=== PATIENT | female | born 1970 | race Caucasian/White ===

== ENCOUNTER 2016-03-23 04:48 | Emergency (ER) | payer OTHER ==
[2016-03-23 05:09] VITALS: BP 138/86; PULSE 76; TEMP 98.1; BMI 23.9
--- NOTE | 2016-03-23 05:27 | PDOC ---
History of Present Illness - General Chief Complaint: Pain, Acute Stated Complaint: PAIN,RIGHT SIDE Time Seen by Provider: 03/23/16 04:59 History Source: Patient Exam Limitations: No Limitations - History of Present Illness Timing/Duration: other (x2d) Associated Symptoms: reports: malaise. denies: chest pain, cough, fever/chills , headaches, nausea/vomiting, shortness of breath Past History - Travel Traveled outside of the country in the last 30 days: No Close contact w/someone who was outside of country & ill: No - Past Medical History Allergies/Adverse Reactions: Allergies Allergy/AdvReac Type Severity Reaction Status Date / Time No Known Allergies Allergy Verified 03/23/16 04:57 Home Medications: Ambulatory Orders Diphenhydramine HCl [Benadryl -] 25 mg PO Q6H 03/23/16 - Psycho/Social/Smoking Cessation Hx Anxiety: No Suicidal Ideation: No Smoking History: Never smoked Hx Alcohol Use: No Substance Use Type: None Review of Systems - Review of Systems Able to Perform ROS?: Yes Comments:: 03/23/16 05:56 CONSTITUTIONAL: +chills, generalize malaise Absent: fever, diaphoresis, malaise, loss of appetite HEENT: Absent: rhinorrhea, nasal congestion, throat pain, throat swelling, difficulty swallowing, mouth swelling, ear pain, eye pain, visual Changes CARDIOVASCULAR: Absent: chest pain, loss of consciousness, palpitations, irregular heart rate, peripheral edema RESPIRATORY: Absent: cough, shortness of breath, dyspnea with exertion, orthopnea, wheezing, stridor, hemoptysis GASTROINTESTINAL: Absent: abdominal pain, abdominal distension, nausea, vomiting, diarrhea, constipation, melena, hematochezia GENITOURINARY: Absent: dysuria, frequency, urgency, hesitancy, hematuria, flank pain, genital pain MUSCULOSKELETAL: Absent: myalgia, arthralgia, joint swelling SKIN: Absent: rash, itching, pallor HEMATOLOGIC/IMMUNOLOGIC: Absent: easy bleeding, easy bruising, lymphadenopathy, frequent infections ENDOCRINE: Absent: unexplained weight gain, unexplained weight loss, heat intolerance, cold intolerance NEUROLOGIC: Absent: headache, focal weakness or paresthesias, dizziness, unsteady gait, seizure, mental status changes, bladder or bowel incontinence PSYCHIATRIC: Absent: anxiety, depression, suicidal or homicidal ideation, hallucinations. Is the patient limited Polish proficient: No *Physical Exam - Vital Signs Last Vital Signs Temp Pulse Resp BP Pulse Ox 98.1 F 76 18 138/86 100 03/23/16 04:58 03/23/16 04:58 03/23/16 04:58 03/23/16 04:58 03/23/16 04:58 - Physical Exam Comments: 03/23/16 05:57 GENERAL: Well developed, well nourished. Awake and alert. No acute distress. HEENT: Normocephalic, atraumatic. PERRLA, EOMI. No conjunctival pallor. Sclera are non- icteric. Moist mucous membranes. Oropharynx is clear. NECK: Supple. Full ROM. No JVD. Carotid pulses 2+ and symmetric, without bruits. No thyromegaly. No lymphadenopathy. CARDIOVASCULAR: Regular rate and rhythm. No murmurs, rubs, or gallops. Distal pulses are 2+ and symmetric. PULMONARY: No evidence of respiratory distress. Lungs clear to auscultation bilaterally. No wheezing, rales or rhonchi. ABDOMINAL: Soft. Non-tender. Non-distended. No rebound or guarding. No organomegaly. Normoactive bowel sounds. MUSCULOSKELETAL Normal range of motion at all joints. No bony deformities or tenderness. No CVA tenderness. EXTREMITIES: No cyanosis. No clubbing. No edema. No calf tenderness. SKIN: Warm and dry. Normal capillary refill. No rashes. No jaundice. NEUROLOGICAL: Alert, awake, appropriate. Cranial nerves 2-12 intact. No deficits to light touch and temperature in face, upper extremities and lower extremities. No motor deficits in the in face, upper extremities and lower extremities. Normoreflexic in the upper and lower extremities. Normal speech. Toes are down- going bilaterally. Gait is normal without ataxia. PSYCHIATRIC: Cooperative. Good eye contact. Appropriate mood and affect. neg pronator drift/rhomberg Toe/heel/tandem walk intact ED Treatment Course - LABORATORY CBC & Chemistry Diagram: 03/23/16 05:25 03/23/16 05:25 *DC/Admit/Observation/Transfer Diagnosis at time of Disposition: Viral infection - Discharge Dispostion Disposition: HOME Condition at time of disposition: Stable - Patient Instructions Printed Discharge Instructions: DI for Viral Syndrome Additional Instructions: Rest Increase fluids Take Tylenol, alternating with Motrin as needed for pain Follow-up with your primary care physician as scheduled for tomorrow Return back to the emergency department for severe/persistent or worsening symptoms. Progress Note - Progress Note Progress Note: 45-year-old female presents to the emergency department with her son who says his mother is complaining of generalized weakness after sleeping for 6 hours on a right lat position. Patient's daughter was recently diagnosed with influenza. Patient denies any headache, dizziness, lightheadedness, visual disturbance, difficulty swallowing, nasal congestion, sinus pain, chest pain, shortness of breath, neck pains, back pains, abdominal pains, flank pains, urinary symptoms: Frequency/urgency/hesitancy, hematuria, extremity numbness or tingling sensation. Patient says she feels fine after taken Tylenol. There are no exacerbating factors. Patient is drinking fluids and eating well.
[2016-03-23] MEDS ORDERED: SODIUM CHLORIDE 1,000 ML IV STA (05:28)
[2016-03-23] MEDS ORDERED: KETOROLAC TROMETHAMINE 30 MG/1 ML VIAL IVPUSH ONE (05:29)
[2016-03-23] MEDS ORDERED: KETOROLAC TROMETHAMINE 30 MG/1 ML VIAL ONE (05:30)
[2016-03-23 05:49] LABS: BASOPHIL 0.6 % (0-2.0); MCH 29.4 pg (25.7-33.7); MCHC 33.6 g/dl (32.0-36.0); MEAN CELL VOLUME 87.5 fl (80-96); MEAN PLT VOLUME 9.2 fl (7.5-11.1); NEUTROPHILS 56.1 % (42.8-82.8); PLATELET COUNT 274 K/MM3 (134-434); RDW 12.7 % (11.6-15.6); WHITE BLOOD COUNT 6.2 K/mm3 (4.0-10.0)
[2016-03-23 05:50] LABS: URINE APPEARANCE CLEAR; URINE BILIRUBIN NEGATIVE (NEGATIVE); URINE BLOOD NEGATIVE (NEGATIVE); URINE COLOR STRAW; URINE GLUCOSE (UA) NEGATIVE (NEGATIVE); URINE KETONE NEGATIVE (NEGATIVE); URINE LEUK ESTERASE NEGATIVE (NEGATIVE); URINE NITRITE NEGATIVE (NEGATIVE); URINE PROTEIN NEGATIVE (NEGATIVE); URINE UROBILINOGEN NEGATIVE E.U./dl (0.2-1.0)
[2016-03-23 06:11] LABS: ALK PHOS 67 U/L (45-117); ANION GAP 9 (8-16); BILIRUBIN,TOTAL 0.5 mg/dL (0.2-1.0); CALCIUM 8.8 mg/dL (8.5-10.1); CO2 28 mmol/L (21-32); CREATININE 0.8 mg/dL (0.55-1.02); GLUCOSE,RANDOM 89 mg/dL (74-106); SGPT/ALT 33 U/L (12-78); TOT PROT 7.7 g/dl (6.4-8.2)
[2016-03-23 06:21] LABS: SGOT/AST 17 U/L (15-37)
== END 2016-03-23 06:31 | disposition home or self-care (01) ==
LOC: JER 04:48
PROC: 3E0333Z Introduction of Anti-inflammatory into Peripheral Vein, Percutaneous Approach (ICD-10-PCS; principal; 2016-03-23)
PROC: 3E0337Z Introduction of Electrolytic and Water Balance Substance into Peripheral Vein, Percutaneous Approach (ICD-10-PCS; 2016-03-23)
DX: B34.9 Viral infection, unspecified (principal)
CPT/HCPCS: 36415; 80053; 81003; 84703; 85025; 96361; 96374; 99281-25

== ENCOUNTER 2016-10-27 21:47 | Emergency (ER) | payer OTHER ==
[2016-10-27 22:02] VITALS: BP 136/78; PULSE 75; TEMP 98; BMI 25.8
--- NOTE | 2016-10-27 22:17 | PDOC ---
History of Present Illness - General Chief Complaint: Respiratory Stated Complaint: CHEST PAIN Time Seen by Provider: 10/27/16 22:16 - History of Present Illness Initial Comments: 10/27/16 22:17 Ms. Rivera is a 46 year old female with no significant past medical history of who presents to the emergency department with a one day history of cough, low energy, and pain to her chest when pressed. She had initially seen her doctor this morning for these same symptoms and was diagnosed with an ear and throat infection but did not fill her prescription. She presented to the ER as her symptoms had gotten worse since this AM. Past History - Past Medical History Allergies/Adverse Reactions: Allergies Allergy/AdvReac Type Severity Reaction Status Date / Time No Known Allergies Allergy Verified 10/27/16 22:02 Home Medications: Ambulatory Orders Diphenhydramine HCl [Benadryl -] 25 mg PO Q6H 03/23/16 Other medical history: denies - Psycho/Social/Smoking Cessation Hx Anxiety: No Suicidal Ideation: No Smoking History: Never smoked Hx Alcohol Use: No Substance Use Type: None Review of Systems - Review of Systems Comments:: 10/27/16 22:17 GENERAL/CONSTITUTIONAL: No fever or chills. No weakness. HEAD, EYES, EARS, NOSE AND THROAT: +Sore throat. No change in vision. No ear pain or discharge. CARDIOVASCULAR: +Sternal pain reported RESPIRATORY: No cough, wheezing, or hemoptysis. GASTROINTESTINAL: No nausea, vomiting, diarrhea or constipation. GENITOURINARY: No dysuria, frequency, or change in urination. MUSCULOSKELETAL: No joint or muscle swelling or pain. No neck or back pain. SKIN: No rash NEUROLOGIC: No headache, vertigo, loss of consciousness, or change in strength/ sensation. ENDOCRINE: No increased thirst. No abnormal weight change HEMATOLOGIC/LYMPHATIC: No anemia, easy bleeding, or history of blood clots. ALLERGIC/IMMUNOLOGIC: No hives or skin allergy. *Physical Exam - Vital Signs Last Vital Signs Temp Pulse Resp BP Pulse Ox 98 F 75 18 136/78 10/27/16 21:55 10/27/16 21:55 10/27/16 21:55 10/27/16 21:55 - Physical Exam Comments: 10/27/16 22:17 GENERAL: Awake, alert, and fully oriented, in no acute distress HEAD: No signs of trauma, normocephalic, atraumatic EYES: PERRLA, EOMI, sclera anicteric, conjunctiva clear ENT: +Oropharynx mildly red with no exudates. TM's clear. Auricles normal inspection, hearing grossly normal, nares patent, Moist mucosa NECK: Normal ROM, supple, no lymphadenopathy, JVD, or masses LUNGS: +Reproducible chest pain to palpation. No distress, speaks full sentences , clear to auscultation bilaterally HEART: Regular rate and rhythm, normal S1 and S2, no murmurs, rubs or gallops, peripheral pulses normal and equal bilaterally. ABDOMEN: Soft, nontender, normoactive bowel sounds. No guarding, no rebound. No masses EXTREMITIES: Normal inspection, Normal range of motion, no edema. No clubbing or cyanosis. NEUROLOGICAL: Cranial nerves II through XII grossly intact. Normal speech, normal gait, no focal sensorimotor deficits SKIN: Warm, Dry, normal turgor, no rashes or lesions noted. Medical Decision Making - Medical Decision Making 10/27/16 22:44 Ms. Rivera presents for evaluation of cold-like symptoms. Toradol 60 given IM for pain control. Will d/c to home with instructions to follow-up as necessary with pcp for any changes. *DC/Admit/Observation/Transfer Diagnosis at time of Disposition: Viral syndrome - Discharge Dispostion Disposition: HOME - Patient Instructions Printed Discharge Instructions: DI for Viral Syndrome
[2016-10-27] MEDS ORDERED: KETOROLAC TROMETHAMINE 30 MG/1 ML VIAL IM ONE (22:43)
[2016-10-27] MEDS ORDERED: KETOROLAC TROMETHAMINE 60 MG/2 ML VIAL IM ONE (22:44)
[2016-10-27] MEDS ORDERED: KETOROLAC TROMETHAMINE 60 MG/2 ML VIAL ONE (22:50)
--- NOTE | 2016-10-28 13:24 | EKG ---
Test Reason : Blood Pressure : / mmHG Vent. Rate : 076 BPM Atrial Rate : 076 BPM P-R Int : 128 ms QRS Dur : 074 ms QT Int : 372 ms P-R-T Axes : 049 033 037 degrees QTc Int : 418 ms SINUS RHYTHM WITH PREMATURE ATRIAL COMPLEXES EARLY TRANSITION IN V2 NO PREVIOUS ECGS AVAILABLE CLINICAL CORRELATION IS RECOMMENDED Confirmed by HODAN MIRANDA MD ([id number] on 10/28/2016 1:24:06 PM Referred By: Confirmed By:HODAN MIRANDA MD
== END 2016-10-27 23:13 | disposition home or self-care (01) ==
LOC: JER 21:47
PROC: 3E0233Z Introduction of Anti-inflammatory into Muscle, Percutaneous Approach (ICD-10-PCS; principal; 2016-10-27)
DX: R07.89 Other chest pain (principal)
CPT/HCPCS: 93005; 93010; 99282-25